=== PATIENT | female | born 1955 | race Caucasian/White ===

== ENCOUNTER → 2019-01-25 | Outpatient (CLI) | payer OTHER | LOC: RAD 13:04 | DX: R07.9 Chest pain, unspecified (principal) ==

== ENCOUNTER → 2021-08-12 | Outpatient (CLI) | payer OTHER | LOC: CAT 09:16 | PROVIDERS: ATTEND Family Medicine | DX: Z13.6 Encounter for screening for cardiovascular disorders (principal); I25.10 Atherosclerotic heart disease of native coronary artery without angina pectoris; E78.00 Pure hypercholesterolemia, unspecified ==